=== PATIENT | female | born 1950 | race Caucasian/White ===

== ENCOUNTER 2017-09-20 10:17 | Emergency (ER) | payer OTHER ==
[~2017-09-20] VITALS: Ht 157.5 cm; Wt 81.6 kg
[2017-09-20] MEDS ORDERED: ADVAIR HFA 115/12 GM (10:51)
[2017-09-20] MEDS ORDERED: CLONAZEPAM1 MG (10:51)
[2017-09-20] MEDS ORDERED: COZAAR50 MG (10:51)
[2017-09-20] MEDS ORDERED: TYLENOL325 MG (10:51)
== END 2017-09-20 11:49 | disposition home or self-care (01) ==
LOC: ER 10:17
DX: H11.32 Conjunctival hemorrhage, left eye (principal)

== ENCOUNTER 2018-12-10 14:38 | Emergency (ER) | payer OTHER ==
[~2018-12-10] VITALS: Ht 157.5 cm; Wt 79.8 kg
[~2018-12-10 14:38] MED LIST: ADVAIR HFA 115/12 GM; CLONAZEPAM1 MG; COZAAR50 MG; TYLENOL325 MG
== END 2018-12-10 18:09 | disposition home or self-care (01) ==
LOC: ER 14:38
DX: R51 Headache (principal)